=== PATIENT | male | born 1945 | race Caucasian/White ===

== ENCOUNTER 2017-07-22 17:42 | Emergency (ER) | payer MEDICARE, OTHER ==
[~2017-07-22 17:42] MED LIST: DAILY VITAMIN1 EACH PO; PAXIL20 MG PO; PRILOSEC20 MG PO
[2017-07-22 19:12] LABS: BILIRUBIN NEGATIVE (NEGATIVE); BLOOD 2+ Ery/uL (NEGATIVE); CLARITY CLEAR (CLEAR); COLOR YELLOW (YELLOW); GLUCOSE (U) NORMAL (NORMAL); KETONE (U) NEGATIVE (NEGATIVE); LEUKOCYTES TRACE Leu/uL (NEGATIVE); NITRITE NEGATIVE (NEGATIVE); PROTEIN NEGATIVE (NEGATIVE); UROBILINOGEN 0.2 mg/dL (0.2-1.0); pH 5.5 (5.0-9.0)
[2017-07-22 19:19] LABS: SQUAMOUS EPITHELIAL CELLS RARE; URINARY WBC RARE
== END 2017-07-22 19:09 | disposition home or self-care (01) ==
LOC: FER 17:42
PROVIDERS: Nurse Practitioner Family
DX: R33.9 Retention of urine, unspecified (principal); Z96.0 Presence of urogenital implants; Z79.899 Other long term (current) drug therapy
CPT/HCPCS: 81001; 87076; 87077; 87088; 87186